=== PATIENT | female | born 1990 | race Caucasian/White ===

== ENCOUNTER → 2019-08-22 16:10 | Outpatient (CLI) | payer OTHER, SELFPAY ==
--- NOTE | 2019-08-22 | DI.MRI.S_ITS ---
PROCEDURE: MR HEAD/BRAIN WO CON INDICATIONS: Other migraine TECHNIQUE: Noncontrast axial T1 spin echo, axial T2 fast spin echo, sagittal and axial FLAIR, coronal T2 fast spin echo, axial gradient echo, axial diffusion and ADC through the brain. COMPARISON: None. FINDINGS: Image quality: Excellent. CSF Spaces: Basal cisterns are patent. No extra-axial fluid collections. Ventricles are normal in size and shape. Brain: No intracranial masses or hemorrhage. Matias/white matter interface is normal. Brainstem appears normal. Diffusion-weighted images demonstrate no acute ischemic insult. No chronic ischemic insults. Normal intravascular flow voids are present. Skull and face: Calvarium has normal marrow signal. Orbits appear normal. Sinuses: Sinuses and mastoids are clear. IMPRESSION: Unremarkable intracranial study, without an imaging explanation found for the patient's presenting history of migraine headaches. Dictated by: Tu Perera M.D. on 08/22/2019 at 16:14 Approved by: Tu Perera M.D. on 08/22/2019 at 16:16
== END ==
PROVIDERS: PCP Family Medicine; Referring Provider Family Medicine; Visit Provider Family Medicine
DX: G43.809 Other migraine, not intractable, without status migrainosus (principal); Q67.0 Congenital facial asymmetry; H50.9 Unspecified strabismus
CPT/HCPCS: 70551

== ENCOUNTER → 2020-06-18 15:41 | Outpatient (CLI) | payer OTHER, SELFPAY ==
--- NOTE | 2020-06-18 15:47 | DIET.PN ---
INITIAL GESTATIONAL DIABETES ASSESSMENT ASSESS:? Mrs. Medel is a 30 yof referred for Gestational Diabetes. She is G2, P1. She admits she has not followed good dietary habits with this . She has had many recent life changes including new job working from home which has increased her sedentary time, deployed , and . She admits to eating whatever is fast and easy including frozen meals, fast food take out, and convenience foods like protein bars. She does not have a glucometer at this time. Prior to , she was taking phentermine for weight loss. She does not currently exercise as she reports it causes headaches. ? OSIEL:?09/24/2020 ? WKS GESTATION:?? 26 wks ?LABS: fastin 1hr :135 2hr: 95 3hr: 70 ? MEDS: none ? DIET: ? B: coffee, cake L: power/protein bowls Sn: kind bars D: fast food ? HT:? 69.5in ? PRE-PREG WT:? 230lb ? PRE-PREG BMI:???33.4 ? CURRENT WT: 273lb ? TOTAL WT GAIN:? 43lb EXERCISE: none NUTRITION DX 1. Altered nutrition related lab values r/t gestational diabetes as evidenced by recent labs (OGGT). INTERVENTION 1. Discussed pathophysiology of gestational diabetes and impact of hormone and nutrition/diet on blood sugar control.? Discussed fed versus non-fed state.? 2. Recommended checking fasting, pre-meal and 1hr post prandial (3x/day).? Discussed goals for glycemic control (<95 FBG, <140 1-hr PP).? 3. Discussed the effect of carbohydrates/protein/fat on blood sugar control.? Stressed importance of consistent carbohydrate intake at each meal and provided instructions for recommended servings/portions of carbohydrates/protein per meal.? Provided pt with educational material. 4. Introduced carbohydrate counting and measuring carbohydrate content via servings sizes and reading nutrition labels.? Provided handouts.? Pt will need further review 5. Discussed importance of meal timing and not going >3 hours between meals.? Provided sample meal schedule for pt.? Pt agreeable.?? 6. Discussed importance a pre-regan vitamin and including food sources of calcium, vitamin D, iron and folic acid for baby and mother?s nutrition support. 7. Discussed caffeine intake. Recommend no more than 200 mg/day (1 cup coffee). 8. Discussed rule of 15 for hypoglycemia. 9. Recommend patient purchase Urine Ketone strips and instructed on use and when to contact provider. 10. Recommended patient continue exercise as appropriate per PCP approval. 11. Patient may need medication management, will follow-up with plan of care at next visit after reviewing glucose results.? MONITOR/EVAL: Follow up scheduled X 3 week. Good compliance expected. Review: carb sources, carb counting, portion size, meal timing, BG log, weight. Today?s visit was done via tele health. 1 hour was spent [id number] by video. Patient consented to receive these services via tele health using the [employer] application. Participants in the tele conference were myself and the patient only. I was located at [facility] and the patient at his/her home.
== END ==
PROVIDERS: PCP Family Medicine; Referring Provider Specialist; Visit Provider Specialist
DX: O24.410 Gestational diabetes mellitus in pregnancy, diet controlled (principal); Z3A.26 26 weeks gestation of pregnancy; Z71.3 Dietary counseling and surveillance
CPT/HCPCS: G0108

== ENCOUNTER → 2020-06-28 11:25 | Outpatient (CLI) | payer OTHER, SELFPAY ==
[2020-06-28 12:10] LABS: Hematocrit 34.5 % (36-46); Hemoglobin 11.5 g/dL (12.0-16.0)
== END ==
PROVIDERS: PCP Family Medicine; Referring Provider Specialist; Visit Provider Specialist
DX: O26.899 Other specified pregnancy related conditions, unspecified trimester (principal); Z67.91 Unspecified blood type, Rh negative; Z3A.26 26 weeks gestation of pregnancy
CPT/HCPCS: 36415; 85014; 85018; 86850

== ENCOUNTER → 2020-07-12 11:33 | Outpatient (CLI) | payer OTHER, SELFPAY ==
[2020-07-12 13:37] LABS: Alanine Aminotransferase 11 IU/L (<35); Albumin 3.9 g/dL (3.5-5.0); Albumin Globulin Ratio 1.1 (1.0-2.8); Alkaline Phosphatase 73 U/L (38-126); Aspartate Aminotransferase 17 IU/L (14-36); BUN Creatinine Ratio 14.3 (6-22); Bilirubin Total 0.2 mg/dL (0.2-1.3); Blood Urea Nitrogen 6 mg/dL (7-17); Calcium 10.1 mg/dL (8.4-10.2); Carbon Dioxide 24 mmol/L (22-32); Chloride 104 mmol/L (98-107); Estimated Glomerular Filt Rate > 60.0 mL/min (>60); Globulin 3.6 g/dL (1.7-4.1); Glucose 94 mg/dL (70-100); HEMOLYSIS < 15 (0-50); Potassium 4.2 mmol/L (3.4-5.1); Sodium 135 mmol/L (137-145); Total Protein 7.5 g/dL (6.3-8.2)
== END ==
PROVIDERS: PCP Family Medicine; Referring Provider Specialist; Visit Provider Specialist
DX: T50.901A Poisoning by unspecified drugs, medicaments and biological substances, accidental (unintentional), initial encounter (principal)
CPT/HCPCS: 36415; 80053

== ENCOUNTER → 2020-08-31 17:24 | Outpatient (CLI) | payer OTHER, SELFPAY ==
[2020-09-01 16:10] LABS: Strep Grp B PCR NEG for Grp B Strep
== END ==
PROVIDERS: PCP Family Medicine; Visit Provider Obstetrics & Gynecology
DX: Z34.03 Encounter for supervision of normal first pregnancy, third trimester (principal); Z3A.36 36 weeks gestation of pregnancy
CPT/HCPCS: 87653

== ENCOUNTER 2020-09-18 21:26 | Observation (INO) | payer OTHER, SELFPAY ==
[2020-09-18 23:04] LABS: Add Manual Diff / Slide Review NO; Basophils Absolute Auto 0 /uL (0-100); Basophils Percent Auto 0.3 % (0-2); Eosinophils Absolute Auto 100 /uL (0-450); Eosinophils Percent Auto 0.9 % (2-4); Hematocrit 35.8 % (36-46); Hemoglobin 12.2 g/dL (12.0-16.0); Lymphocytes Absolute Auto 1700 /uL (1100-4500); Mean Corpuscular HGB Conc 34.1 % (30-36); Mean Corpuscular Hemoglobin 29.9 PG (26-34); Mean Corpuscular Volume 87.7 fL (80-100); Monocytes Absolute Auto 600 /uL (0-900); Monocytes Percent Auto 5.7 % (3-14); Neutrophils Absolute Auto 7300 /uL (1500-7000); Neutrophils Percent Auto 75.1 % (50-75); Platelet Count 178 X10^3/uL (150-400); Red Blood Cell Count 4.08 X10^6/uL (4.0-5.2); Red Cell Distribution Width 14.2 % (11.6-14.8); White Blood Cell Count 9.7 X10^3/uL (4.5-11.0)
[2020-09-18 23:51] LABS: COVID19 - ADMIT (NP swab/PCR) Negative (Negative)
[2020-09-18] MEDS: miSOPROStoL 25 MCG TABLET VAG (23:53)
[2020-09-19 00:48] VITALS: BP 117/69
[2020-09-19] MEDS: miSOPROStoL 25 MCG TABLET VAG (03:56)
[2020-09-19 04:49] VITALS: BP 120/56
--- NOTE | 2020-09-19 08:36 | P.HPOB_ITS ---
OB HPI Date/Time Date of admission: 09/18/20 Date Patient Seen: 09/19/20 Time Patient Seen: 07:30 History of Present Condition Chief complaint: induction : 2 Para: 1 Estimated Date of Delivery: 09/23/20 Estimated Gestational Age (weeks): 39 Narrative: Mariana Medel is a 30 year old female admitted for induction for patient convenience Indications Indication for induction OB: other (They are moving is seen as possible to [place]) History of Present care: good care, initiated at week # (12), number of visits (12) and pounds weight gain (65) Dating criteria: LMP confirmed by 1st trimester US Ultrasounds: normal mid trimester US Obstetrical complications: none Preadmission Labs Blood type: A (-) negative -: Antibody screen: negative, GBS status: negative, HBsAG: negative, HIV: negative and RPR/VDLR: negative -: Chlamydia screen: not detected and Gonorrhea screen: not detected -: Rubella: immune and Varicella: immune HCAB: negative PAP: Normal Sequential screen: Normal 1 hr GTT: 135 Prior (ies) History: 01/21/2012 40 week gestation vaginal delivery 7 lb 5 oz Evaluation Evaluation Baseline heart rate: 130 Variability: Moderate (11-25) monitor accelerations: Present Monitor Decelerations: Absent Contraction Frequency (minutes): 3 Uterine Contraction Intensity: Mild Category of Tracing: Reactive Status: Category l Cervical dilation (cm): 1 Cervical effacement (%): 75 station: -3 Laboratory results: Laboratory Tests 09/18/20 09/18/20 09/18/20 22:35 22:40 22:40 WBC 9.7 RBC 4.08 Hgb 12.2 Hct 35.8 L MCV 87.7 MCH 29.9 MCHC 34.1 RDW 14.2 Plt Count 178 Neut % (Auto) 75.1 H Lymph % (Auto) 18.0 L [place] % (Auto) 5.7 Eos % (Auto) 0.9 L Baso % (Auto) 0.3 Neut # (Auto) 7300 H Lymph # (Auto) 1700 [place] # (Auto) 600 Eos # (Auto) 100 Baso # (Auto) 0 SARS-CoV-2 (PCR) Negative Blood Type A Negative Antibody Screen Negative [facility] Medical History (Updated 07/12/20 @ 11:33 by Rakel Galloway MD) ADD (attention deficit disorder) Anxiety Blood type, Rh negative Chlamydia Depression Eczema Fibroadenoma of breast (~2015) Genital warts History of fibromyalgia Migraine Morbid obesity Myalgia No blood products (spontaneous vaginal delivery) (~01/21/12) Tobacco dependence Surgical History (Updated 05/30/20 @ 12:46 by Juliana Lee, RN) History of breast biopsy (~2015) S/P wisdom tooth extraction (~2014) [place] teeth extracted Family History (Updated 05/30/20 @ 12:40 by Juliana Lee, ADRIANNE) Mother Hypertension Diabetes mellitus Narcolepsy Depression Hyperlipidemia Father Diverticulitis Grandmother No problems noted. Grandfather Abuse, drug or alcohol Grandmother No problems noted. 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 needs: No Smoking Status: Former smoker Tobacco: How many years used: 15 second hand exposure: No alcohol intake: former (pre- : social on weekends) substance use type: does not use Meds Home Medications and Allergies Home Medications Medication Instructions Recorded Confirmed Type acetaminophen 650 mg 1,000 mg PO Q12H PRN tab 05/30/20 09/19/20 History tablet,extended release (Tylenol 8 Hour) prenat.vits,gypsy,ssx-[id number] 1 tab PO DAILY 05/30/20 09/19/20 History sertraline 25 mg tablet 25 mg PO DAILY #30 tab 07/12/20 09/19/20 Rx Double Electric breast Pump and #1 ea 09/13/20 09/19/20 Rx Supplies Allergies Allergy/AdvReac Type Severity Reaction Status Date / Time No Known Drug Allergies Allergy Verified 09/19/20 04:57 Review of Systems Review of Systems Narrative: Patient denies headaches, scotomata, epigastric pain. Good movement. No leakage of fluid. ROS: Yes All systems reviewed with the patient and are negative except as otherwise documented Exam Vital Signs (past 8 hours): - 09/19/20 00:48 09/19/20 04:49 Blood Pressure 117/69 120/56 L Narrative Exam Narrative: HEENT exam within normal limits. Lungs are clear to auscultation percussion. Heart is regular rate and rhythm no S3-S4 murmurs. Abdomen is gravid, nontender. Ultrasound confirms vertex presentation. Extremities without edema and nontender. Objective Labs Result Diagrams: 09/18/20 22:40 Labs: Laboratory Results - last 24 hr 09/18/20 09/18/20 09/18/20 22:35 22:40 22:40 WBC 9.7 RBC 4.08 Hgb 12.2 Hct 35.8 L MCV 87.7 MCH 29.9 MCHC 34.1 RDW 14.2 Plt Count 178 Neut % (Auto) 75.1 H Lymph % (Auto) 18.0 L [place] % (Auto) 5.7 Eos % (Auto) 0.9 L Baso % (Auto) 0.3 Neut # (Auto) 7300 H Lymph # (Auto) 1700 [place] # (Auto) 600 Eos # (Auto) 100 Baso # (Auto) 0 SARS-CoV-2 (PCR) Negative Blood Type A Negative Antibody Screen Negative Assessment and Plan Assessment and Plan Assessment and Plan narrative: 2 para 1 EDC 09/23/2020 admitted for induction for patient convenience. Patient received Cytotec x2 overnight. Unable to place Avendano balloon so will begin Pitocin. Anticipate vaginal delivery.
[2020-09-19] MEDS: LACTATED RINGERS 1,000 ML 100 ML IV (08:45)
[2020-09-19] MEDS: OXYTOCIN PREMIX 30 UNIT/500 ML PLAST..BAG IV (08:54)
[2020-09-19] MEDS: ACETAMINOPHEN 325 MG TABLET 650 MG PO (16:24)
--- NOTE | 2020-09-19 17:22 | PM.OBPNLAB ---
Date/Time Date Patient Seen: 09/19/20 Time Patient Seen: 17:22 Pain Control Pain control: tolerating well Pelvic Exam Dilation (cm): 1 Effacement (%): 75 station: -3 Contractions Contractions on admission: regular Monitor mode: External Pitocin rate (mU/min): 10 Contraction frequency (min): 3 Contraction duration (min): 1 Contraction pattern: Regular Contraction intensity: Mild Status status: Category l Heart Rate Baseline: 130 Monitor Accelerations: Present Monitor Decelerations: Absent Monitor Variability: Moderate Assessment and Plan Assessment: induction ongoing Comments: Patient with no change in her cervix despite 8 hours of Pitocin. Options reviewed with the patient including being discharged home and following up for evaluation for onset of labor later. Repeat Cytotec or repeat attempt at Avendano bulb. Patient will stop the Pitocin and eat dinner and then we will retry placement of Avendano bulb if not unsuccessful continue with Cytotec.
--- NOTE | 2020-09-20 09:36 | P.DS_ITS ---
Discharge Providers Provider Date of admission: 09/18/20 21:26 Discharge Date: 09/19/20 Primary care physician: Suma Amos DO Consults: 09/18/20 22:48 Consult to Anesthesiology Urgent Comment: Consulting Provider: Anesthesiologist Reason for consultation: Epidural Has provider been notified: No Discharge provider: Rakel Galloway MD Summary Hospital Course Date Patient Seen: 09/19/20 Time Patient Seen: 19:30 Diagnoses: 39 week gestation admitted for induction for patient convenience Hospital Course: Patient underwent Cytotec followed by failed attempt at Avendano bulb induction. She was on Pitocin for 8 hours with no change in her cervix. A Avendano bulb was successfully placed however the patient had minimal change in her cervix after the Avendano bulb passed through her cervix and she was not stacey. Patient decided rather than continuing on with induction at this point that she would prefer to go home to see if she would go into labor on her own. Peripartum Data Procedures: Prostin, Pitocin, Avendano bulb induction Discharge Diagnosis (1) 39 weeks gestation of : Status: Acute Status at Discharge Cognitive/behavioral status at discharge: oriented Functional status at discharge: independent ambulation Overall status at discharge: patient is progressing back to baseline Time Spent with Patient Time attestation: Total time spent providing and/or coordinating discharge services: Time spent: Less than 30 minutes Objective Labs Result Diagrams: 09/18/20 22:40 Exam Vital Signs (past 8 hours): Blood pressure 122/64, pulse 75, temperature 35.7? Narrative Exam Narrative: Patient's cervix is 2 cm dilated, 75% effaced,-2 station. heart tones category 1. No active contractions at this time. Discharge Plan Discharge Plan Patient Disposition: Home Discharge orders & Medications Prescriptions: Continued sertraline 25 mg tablet 25 mg PO DAILY Qty: 30 RF: 0 prenat.vits,gypsy,det-lvvg-pftjb Tablet 1 tab PO DAILY RF: 0 acetaminophen [Tylenol 8 Hour] 650 mg tablet extended release 1,000 mg PO Q12H PRN (Reason: pain) RF: 0 (DME) Double Electric breast Pump and Supplies See Rx Instructions .ROUTE .MEDSUPPLY Qty: 1 RF: 0 Follow up/Referrals: Rakel Galloway MD [Physician] - (Patient is scheduled for repeat attempt at i nduction on to stay the 13th. Hopefully she will return in labor prior to that time.) Suma Amos, [Primary Care Provider] - Diet/Activity/Treatments Diet: Regular Activity: No restrictions Skin/Wound/Dressing Care Report to your healthcare provider any signs of infection, such as:: increased pain Discharge Data Primary Care Provider: Suma Amos Attending Provider: Rakle Galloway
== END 2020-09-20 00:02 | disposition home or self-care (01) ==
PROVIDERS: Admitting Provider Specialist; PCP Family Medicine; Referring Provider Specialist; Visit Provider Specialist
DX: O99.343 Other mental disorders complicating pregnancy, third trimester (principal); F41.9 Anxiety disorder, unspecified; F32.9 Major depressive disorder, single episode, unspecified; Z3A.39 39 weeks gestation of pregnancy; Z20.822 Contact with and (suspected) exposure to COVID-19
CPT/HCPCS: 59200; 36415; 85025; 86850; 86900; 86901; 87635; C9803; G0378; G0379; J2590

== ENCOUNTER 2020-09-21 00:40 | Outpatient (CLI) | payer OTHER, SELFPAY | END 2020-09-21 01:05 | disposition home or self-care (01) | LOC: LABOR 00:47 → OB 07:52 | PROVIDERS: PCP Family Medicine; Referring Provider Specialist; Visit Provider Specialist | DX: Z34.83 Encounter for supervision of other normal pregnancy, third trimester (principal); Z3A.39 39 weeks gestation of pregnancy | CPT/HCPCS: 59025; G0378; G0379 ==

== ENCOUNTER 2020-09-25 07:28 | Inpatient (IN) | payer OTHER, SELFPAY ==
[2020-09-25] MEDS: LACTATED RINGERS 1,000 ML 100 ML IV (08:00)
[2020-09-25 08:51] LABS: Add Manual Diff / Slide Review NO; Basophils Absolute Auto 100 /uL (0-100); Basophils Percent Auto 0.6 % (0-2); Eosinophils Absolute Auto 100 /uL (0-450); Eosinophils Percent Auto 0.8 % (2-4); Hematocrit 37.4 % (36-46); Hemoglobin 12.6 g/dL (12.0-16.0); Lymphocytes Absolute Auto 1700 /uL (1100-4500); Lymphocytes Percent Auto 18.8 % (25-40); Mean Corpuscular HGB Conc 33.8 % (30-36); Mean Corpuscular Hemoglobin 29.5 PG (26-34); Mean Corpuscular Volume 87.3 fL (80-100); Monocytes Absolute Auto 400 /uL (0-900); Monocytes Percent Auto 4.4 % (3-14); Neutrophils Absolute Auto 6700 /uL (1500-7000); Neutrophils Percent Auto 75.4 % (50-75); Platelet Count 175 X10^3/uL (150-400); Red Blood Cell Count 4.28 X10^6/uL (4.0-5.2); Red Cell Distribution Width 14.5 % (11.6-14.8); White Blood Cell Count 8.9 X10^3/uL (4.5-11.0)
[2020-09-25] MEDS: OXYTOCIN PREMIX 30 UNIT/500 ML PLAST..BAG IV (09:22)
[2020-09-25 09:30] VITALS: BP 125/65
[2020-09-25 09:43] LABS: COVID19 - ADMIT (NP swab/PCR) Negative (Negative)
--- NOTE | 2020-09-25 15:12 | P.HPOB_ITS ---
OB HPI Date/Time Date of admission: 09/25/20 Date Patient Seen: 09/25/20 Time Patient Seen: 09:00 History of Present Condition Chief complaint: INDUCTION : 2 Para: 1 Estimated Date of Delivery: 09/23/20 Estimated Gestational Age (weeks): 40 Narrative: Mariana Medel is a 30 year old female admitted for induction for moving as soon as possible after delivery Indications Indication for induction OB: other (Moving is seen is possible after delivery) History of Present care: good care, initiated at week # (12), number of visits (12) and pounds weight gain (65) Dating criteria: LMP confirmed by 1st trimester US Ultrasounds: normal mid trimester US Obstetrical complications: none Medical complications: none Preadmission Labs Blood type: A (-) negative -: Antibody screen: negative, GBS status: negative, HBsAG: negative, HIV: negative and RPR/VDLR: negative -: Chlamydia screen: not detected and Gonorrhea screen: not detected -: Rubella: immune and Varicella: immune HCAB: negative Sequential screen: Normal 1 hr GTT: 135 Prior (ies) History: 01/21/2012 40 week gestation female infant weighing 7 lb 5 oz Evaluation Evaluation Baseline heart rate: 130 Variability: Moderate (11-25) monitor accelerations: Present Monitor Decelerations: Variable (Occasional mild) Contraction Frequency (minutes): 5 Uterine Contraction Intensity: Mild Category of Tracing: Reactive Status: Category ll Cervical dilation (cm): 2 Cervical effacement (%): 75 station: -3 Laboratory results: Laboratory Tests 09/25/20 09/25/20 09/25/20 08:20 08:20 08:20 WBC 8.9 RBC 4.28 Hgb 12.6 Hct 37.4 MCV 87.3 MCH 29.5 MCHC 33.8 RDW 14.5 Plt Count 175 Neut % (Auto) 75.4 H Lymph % (Auto) 18.8 L [place] % (Auto) 4.4 Eos % (Auto) 0.8 L Baso % (Auto) 0.6 Neut # (Auto) 6700 Lymph # (Auto) 1700 [place] # (Auto) 400 Eos # (Auto) 100 Baso # (Auto) 100 SARS-CoV-2 (PCR) Negative Blood Type A Negative Antibody Screen Negative [facility] Medical History (Updated 09/20/20 @ 09:38 by Rakel Galloway MD) ADD (attention deficit disorder) Anxiety Blood type, Rh negative Chlamydia Depression Eczema Fibroadenoma of breast (~2015) Genital warts History of fibromyalgia Migraine Morbid obesity Myalgia No blood products (spontaneous vaginal delivery) (~01/21/12) Tobacco dependence Surgical History (Updated 05/30/20 @ 12:46 by Juliana Lee, RN) History of breast biopsy (~2015) S/P wisdom tooth extraction (~2014) [place] teeth extracted Family History (Updated 05/30/20 @ 12:40 by Juliana Lee, ADRIANNE) Mother Hypertension Diabetes mellitus Narcolepsy Depression Hyperlipidemia Father Diverticulitis Grandmother No problems noted. Grandfather Abuse, drug or alcohol Grandmother No problems noted. 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: No Smoking Status: Never smoker Tobacco: How many years used: 15 second hand exposure: No alcohol intake: former (pre- : social on weekends) substance use type: does not use Meds Home Medications and Allergies Home Medications Medication Instructions Recorded Confirmed Type acetaminophen 650 mg 1,000 mg PO Q12H PRN tab 05/30/20 09/25/20 History tablet,extended release (Tylenol 8 Hour) prenat.vits,gypsy,omh-lnwc-ujfsu 1 tab PO DAILY 05/30/20 09/25/20 History sertraline 25 mg tablet 25 mg PO DAILY #30 tab 07/12/20 09/25/20 Rx Double Electric breast Pump and #1 ea 09/13/20 09/19/20 Rx Supplies Allergies Allergy/AdvReac Type Severity Reaction Status Date / Time No Known Drug Allergies Allergy Verified 09/19/20 04:57 Review of Systems Review of Systems Narrative: Patient denies leakage of fluid. Good movement. No headaches, scotomata, epigastric pain. ROS: Yes All systems reviewed with the patient and are negative except as otherwise documented Exam Vital Signs (past 8 hours): Blood pressure 125/61, pulse of 80, temperature 36.1? 09/25/20 09:30 Blood Pressure 125/65 Narrative Exam Narrative: HEENT exam within normal limits. Lungs are clear to auscultation percussion. Heart is regular rate and rhythm no S3-S4 murmurs. Abdomen is gravid. Fetus is vertex. Extremities without edema and nontender Objective Labs Result Diagrams: 09/25/20 08:20 Labs: Laboratory Results - last 24 hr 09/25/20 09/25/20 09/25/20 08:20 08:20 08:20 WBC 8.9 RBC 4.28 Hgb 12.6 Hct 37.4 MCV 87.3 MCH 29.5 MCHC 33.8 RDW 14.5 Plt Count 175 Neut % (Auto) 75.4 H Lymph % (Auto) 18.8 L [place] % (Auto) 4.4 Eos % (Auto) 0.8 L Baso % (Auto) 0.6 Neut # (Auto) 6700 Lymph # (Auto) 1700 [place] # (Auto) 400 Eos # (Auto) 100 Baso # (Auto) 100 SARS-CoV-2 (PCR) Negative Blood Type A Negative Antibody Screen Negative Assessment and Plan Assessment and Plan Assessment and Plan narrative: 40 week gestation here for induction for patient convenience
--- NOTE | 2020-09-25 15:41 | P.PCN_ITS ---
Regional Block Pre-procedure Procedure: Continuous Lumbar Epidural for L&D Attending OB provider: Rakel Galloway PMH/ROS narrative: morbid obesity anxiety ADHD GERD Hx: No personal or family history of anesthesia problems. PSH/Anesthesia history narrative: Previous epidural without issues Exam narrative: MP2, RRR, CTAB ASA Class: III Labs: Hct 37.4 % (36-46) 09/25/20 08:20 Plt Count 175 X10^3/uL (150-400) 09/25/20 08:20 Medications: Current Medications Generic Name Dose Route Start Last Admin Trade Name Freq PRN Reason Stop Dose Admin Calcium Carbonate 1,000 mg 09/25/20 08:11 Calcium Carbonate 500 Mg Tab PO Q2HR PRN Dyspepsia Carboprost Tromethamine 250 mcg 09/25/20 08:11 Carboprost 250 Mcg/Ml Ampul IM Q90M PRN Bleeding Fentanyl 100 mcg 09/25/20 08:11 Fentanyl 100 Mcg/2 Ml Inj IV Q1H PRN Pain, Severe (7-10) Lactated Ringer's 1,000 mls @ 100 mls/hr 09/25/20 08:15 09/25/20 08:00 Lactated Ringers IV 100 mls/hr CONT CHANELLE Administration Oxytocin/Lactated Ringer's 30 unit in 500 mls @ 200 mls/hr 09/25/20 08:11 Oxytocin Premix IV CONT PRN Bleeding Protocol Tranexamic Acid 1,000 mg/ 100 mls @ 200 mls/hr 09/25/20 08:11 Sodium Chloride IV NOW PRN Bleeding Oxytocin/Lactated Ringer's 30 unit in 500 mls @ 3 mls/hr 09/25/20 08:13 0 09/25/20 09:22 Oxytocin Premix IV 3 milliunit/min TITRATE CHANELLE 3 mls/hr Administration Protocol 3 MILLIUNIT/MIN Methylergonovine Maleate 0.2 mg 09/25/20 08:11 Methylergonovine 0.2 Mg Tablet PO Q6HR PRN Heavy Bleeding Methylergonovine Maleate 0.2 mg 09/25/20 08:11 Methylergonovine 0.2 Mg/Ml Vial IM NOW PRN Bleeding Misoprostol 800 mcg 09/25/20 08:11 Misoprostol 200 Mcg Tablet NV NOW PRN Bleeding Misoprostol 1,000 mcg 09/25/20 08:11 Misoprostol 200 Mcg Tablet NV NOW PRN Bleeding Misoprostol 400 mcg 09/25/20 08:11 Misoprostol 200 Mcg Tablet SL NOW PRN Bleeding Naloxone HCl 0.2 mg 09/25/20 08:11 Naloxone 0.4 Mg/Ml Vial IV Q2MIN PRN Opiate Reversal Ondansetron HCl 4 mg 09/25/20 08:11 Ondansetron 4 Mg/2 Ml Inj IV Q4HR PRN Nausea And Vomiting Oxytocin 10 unit 09/25/20 08:11 Oxytocin 10 Unit/Ml Vial IM NOW PRN Bleeding Allergies: Allergies Allergy/AdvReac Type Severity Reaction Status Date / Time No Known Drug Allergies Allergy Verified 09/19/20 04:57 Procedure Insertion date: 09/25/20 Insertion time: 15:50 Prep/Local: betadine x3 (chloroprep) and 1% lidocaine Interspace: L3-4 Patient position: sitting Needle: 18 gauge Sunny Loss of resistance with: saline YARELI at (cm): 7 Catheter placed at SKIN (cm): 12 Catheter in SPACE (cm): 5 Insertion: Yes CSF Initial Medications TEST DOSE time: 15:30 TEST DOSE: 1.5% lidocaine with epinephrine 1:200k (mL): 5 BOLUS DOSE time: 15:31 BOLUS DOSE (mL): 2 BOLUS DOSE med: other (10mcg fentanyl intrathecally, 90mcg fentanyl via epidural catheter) Infusion INFUSION: 0.0625% bupivacaine and with fentanyl 2 mcg/mL Initial rate (mL/hr): 12 Subsequent interventions: 1645: decreased to 8mL/hr as patient numb to nipple- line Post-procedure Anesthesia time START: 15:13 Anesthesia time END: 18:15 Post-procedure Anesthesia Assessment: Yes CV function: HR/BP stable, Yes Resp function: RR/sat/airway adequate, Yes Post-op hydration adequate, Yes Pain control adequate, Yes Nausea & vomiting absent, Yes Temperature > 36 C, Yes Mental status appropriate and No Anesthesia complications ( intolerance --> )
--- NOTE | 2020-09-25 16:56 | PM.OBPNLAB ---
Date/Time Date Patient Seen: 09/25/20 Time Patient Seen: 16:57 Pain Control Pain control: epidural Pelvic Exam Dilation (cm): 5 Effacement (%): 75 station: -2 Amniotic membrane status: Ruptured (clear) Contractions Contractions on admission: regular Monitor mode: Internal Pitocin rate (mU/min): 21 Contraction frequency (min): 2 Contraction duration (min): 1 Contraction pattern: Regular Contraction intensity: Strong/Firm Intrauterine tone measurement: 120 Status status: Category ll Heart Rate Baseline: 140 Monitor Accelerations: Present Monitor Decelerations: Late Monitor Variability: Moderate Assessment and Plan Assessment: induction ongoing Comments: Pitocin turned off, IV fluid bolus, internal toco and scalp electrode placed, O2 by facemask. Began discussion of possible need for section.
--- NOTE | 2020-09-25 18:03 | P.OP.PRE_ITS ---
Pre-operative Note COVID-19 COVID-19 status: Negative Interval Note History & Physical reviewed/Exam performed by Physician: Yes Changes to H&P: Yes H&P completed within 30 days and has changed as indicated here:: 1st stage arres t
--- NOTE | 2020-09-25 18:06 | PM.OBPNLAB ---
Date/Time Date Patient Seen: 09/25/20 Time Patient Seen: 18:06 Pain Control Pain control: epidural Pelvic Exam Dilation (cm): 5 Effacement (%): 75 station: -2 Amniotic membrane status: Ruptured (clear) Contractions Monitor mode: Internal Pitocin rate (mU/min): 0 Contraction frequency (min): 2 Contraction duration (min): 1 Contraction pattern: Regular Contraction intensity: Strong/Firm Intrauterine tone measurement: 120 Status status: Category lll Heart Rate Baseline: 130 Monitor Accelerations: Absent Monitor Decelerations: Absent Monitor Variability: Minimal Assessment and Plan Plan: Comments: Patient with no change in cervical dilation with nonreassuring heart tones will proceed with section
[2020-09-25] MEDS: CEFAZOLIN 1 GM VIAL 2 GM IV (18:18)
--- NOTE | 2020-09-25 18:49 | SUR.OPER ---
Supine on Padded OR bed, head on pillow, safety belt at thigh, arms secured on padded arm boards at <90 degrees abduction. Bump under right buttock. Legs uncrossed with pillow under knees, gel pad to heels, tape over blanket to lower legs.
--- NOTE | 2020-09-25 18:49 | SUR.OPER ---
Viable female delivered at 1836. Cord blood and placenta sent with L&D nurse.
[2020-09-25 19:11] VITALS: BP 127/59; PULSE 102; RESP 16; TEMP 37.4; O2SAT 99
[2020-09-25 19:16] VITALS: BP 132/52; PULSE 88; RESP 16; O2SAT 99
[2020-09-25 19:21] VITALS: BP 132/73; PULSE 100; RESP 14; O2SAT 99
--- NOTE | 2020-09-25 19:21 | PM.OP.1 ---
Operative Date/Time/Diagnoses Date of procedure: 09/25/20 Time of procedure: 19:21 Pre-op diagnosis: 1st stage arrest Post-op diagnosis: same Procedure & Clinicians Procedure: Primary low-transverse section Same procedure as scheduled: Yes Indications: 1st stage arrest Surgeon: Rakel Galloway Pickling Machine Operator: Remington Lea Anesthesia Type: Epidural Operative Notes Findings: Normal tubes, ovaries, uterus. Viable female weighing 9 lb 4 oz Apgars of 9 and 9. Cord pH 7.307 and 7.47 Closure Type: primary Specimen(s): none sent Applied: catheter (Avendano) Estimated Blood Loss (mL): 400 Blood products transfused: none Procedure in detail: The patient was brought to the operating room where she underwent a bolus of her epidural for anesthesia. She was placed in a supine position with a left lateral tilt. A Avendano catheter was in place. Pulsatile stockings were placed and functional throughout the case. 2 g of Ancef were given IV prior to the incision. Warming was in place. The patient was prepped and draped in usual sterile fashion. A low transverse incision was made with a scalpel and the incision was carried down to the fascial layer which was incised transversely with scissors. The office clerk assistant did his side of the incision. The midline attachments are superiorly and inferiorly. Some bleeding was controlled Bovie. The rectus muscles were in the midline and the peritoneal incision was made with no damage to internal structures. The peritoneum was incised and superiorly and inferiorly. The incision was stretched with the surgeon and office clerk assistant placing traction. Bladder blade was placed and a bladder flap was developed and the bladder held away from the lower uterine segment. An incision was made in the uterus with the scalpel and the incision was extended with stretching. The head was elevated out of the abdomen and with fundal pressure by the office clerk assistant the baby was delivered. The was bulb suctioned for clear fluid and handed off to the warmer. A cord segment was taken for cord pHs. Cord blood was collected. The placenta delivered spontaneously with traction. The uterus was cleaned with clean laps. The uterine incision was closed in 2 layers of 0 chromic suture the first a running locking layer the second an imbricating layer. The office clerk assistant was helping to expose the incision. The gutters were cleaned of any remaining fluids and ovaries and tubes were observed to be normal. Adequate hemostasis was noted. The fascia layer was closed with 0 Vicryl suture with 2 stitches. The office clerk assistant repairing half the incision with helping to retract and expose the incision for the other half. The incision was irrigated and adequate hemostasis noted. The incision was closed with interrupted 3-0 Vicryl sutures and then a subcuticular stitch of 4-0 Vicryl suture. Steri-Strips were placed. The uterus was massaged to remove any clots. The patient went to recovery room in good condition. Counts of instruments and sponges were correct. Dr. Lea was present throughout the case to assist with retraction, fundal pressure to deliver the , and suturing half the fascia. Complications: none Post-operative Condition: stable Disposition: other ( Center) Plan for aftercare: Routine post section care
[2020-09-25] MEDS: OXYCODONE IR 5 MG TABLET PO (19:28)
--- NOTE | 2020-09-25 19:51 | SUR.PHASEI ---
REPORT GIVEN TO ROB CHEN RN. ALL QUESTIONS ANSWERED TO SATISFACTION. LEFT PATIENT IN STABLE CONDITION WITH BED LOCKED IN LOW POSITION, AND SCD'S ON.
[2020-09-26] MEDS: LANOLIN OINT 7 GM 1 APPLIC TOP (01:11)
[2020-09-26] MEDS: KETOROLAC 30 MG/ML VIAL IV ×3 (01:11→17:00)
[2020-09-26] MEDS: ACETAMINOPHEN 325 MG TABLET 650 MG PO ×2 (06:14→20:50)
[2020-09-26 06:53] LABS: Add Manual Diff / Slide Review NO; Basophils Absolute Auto 0 /uL (0-100); Basophils Percent Auto 0.1 % (0-2); Eosinophils Absolute Auto 0 /uL (0-450); Eosinophils Percent Auto 0.3 % (2-4); Hematocrit 30.2 % (36-46); Hemoglobin 10.2 g/dL (12.0-16.0); Lymphocytes Absolute Auto 1200 /uL (1100-4500); Lymphocytes Percent Auto 11.6 % (25-40); Mean Corpuscular HGB Conc 33.7 % (30-36); Mean Corpuscular Hemoglobin 29.5 PG (26-34); Mean Corpuscular Volume 87.7 fL (80-100); Monocytes Absolute Auto 600 /uL (0-900); Monocytes Percent Auto 5.5 % (3-14); Neutrophils Absolute Auto 8400 /uL (1500-7000); Neutrophils Percent Auto 82.5 % (50-75); Platelet Count 131 X10^3/uL (150-400); Red Blood Cell Count 3.44 X10^6/uL (4.0-5.2); Red Cell Distribution Width 14.4 % (11.6-14.8); White Blood Cell Count 10.1 X10^3/uL (4.5-11.0)
[2020-09-26] MEDS: DOCUSATE 250 MG CAPSULE PO (08:42)
--- NOTE | 2020-09-26 13:48 | PM.OBPN.1 ---
Subjective - OB Subjective Patient comments: incisional pain and tolerating diet baby status: doing well and nursing well feeding status: exclusively breast feeding Date Patient Seen: 09/26/20 Time Patient Seen: 13:49 Interval history: Postop Day 1 primary low-transverse section. Patient is doing well. She just got up for the 1st time and was not dizzy. She she is tolerating a regular diet. She does complain of incisional pain. Exam Vital Signs (past 8 hours): Blood pressure 119/65, pulse of 98, temperature 98.1? Oxygen Delivery Method Room Air Oxygen Flow Rate 0 Narrative Exam Narrative: Patient's abdomen is soft, nontender. Uterus is firm, at U, nontender. Dressing is clean, dry, intact. Mild lochia. Extremities without edema and nontender. Objective Labs Result Diagrams: 09/26/20 06:34 Labs: Laboratory Results - last 24 hr 09/26/20 09/26/20 06:34 06:34 WBC 10.1 RBC 3.44 L Hgb 10.2 L Hct 30.2 L MCV 87.7 MCH 29.5 MCHC 33.7 RDW 14.4 Plt Count 131 L Neut % (Auto) 82.5 H Lymph % (Auto) 11.6 L [place] % (Auto) 5.5 Eos % (Auto) 0.3 L Baso % (Auto) 0.1 Neut # (Auto) 8400 H Lymph # (Auto) 1200 [place] # (Auto) 600 Eos # (Auto) 0 Baso # (Auto) 0 Maternal Bleed Negative Assessment & Plan Plan day: 1 plan OB: routine postop care Comments: Avendano catheter will be removed. Patient's questions were answered. Likely home tomorrow. Time Spent With Patient Time: Total time spent is greater than 50% in coordination of care (as documented) at patient's floor/unit and/or counseling patient: Time with patient: less than 15 minutes
[2020-09-26] MEDS: OXYCODONE IR 5 MG TABLET PO ×2 (14:39→20:50)
[2020-09-26 22:32] VITALS: BP 128/69; BP 132/73; PULSE 82; RESP 16; TEMP 36.1
[2020-09-26] MEDS: IBUPROFEN 600 MG TABLET PO (22:47)
[2020-09-27] MEDS: OXYCODONE IR 5 MG TABLET PO ×3 (00:56→08:57)
[2020-09-27] MEDS: ACETAMINOPHEN 325 MG TABLET 650 MG PO ×2 (02:46→08:57)
[2020-09-27] MEDS: IBUPROFEN 600 MG TABLET PO ×2 (04:43→11:15)
--- NOTE | 2020-09-27 07:21 | P.DS_ITS ---
Discharge Providers Provider Date of admission: 09/25/20 07:28 Discharge Date: 09/27/20 Primary care physician: Suma Amos DO Consults: 09/25/20 08:12 Consult to Anesthesiology Urgent Comment: Consulting Provider: Anesthesiologist Reason for consultation: Epidural Has provider been notified: No 09/25/20 22:32 Consult to Shelf Drier Operator Routine Comment: Discharge provider: Rakel Galloway MD Summary Hospital Course Date Patient Seen: 09/27/20 Time Patient Seen: 07:21 Diagnoses: 39 week gestation with 1st stage arrest, primary low-transverse section Hospital Course: Patient arrived on Labor and delivery for induction for patient convenience. She received an epidural catheter for pain control. She had 1st stage arrest and underwent a primary low-transverse section for a 9 lb female infant. Patient is urinating and ambulating well. She is passing gas. She is breast-feeding. Peripartum Data Delivery Method: Section Procedures: Pitocin induction, epidural catheter, primary low-transverse section. complications: none 1: Gender: Female Disposition of : home Status at Discharge Cognitive/behavioral status at discharge: oriented Functional status at discharge: independent ambulation Overall status at discharge: patient is progressing back to baseline Time Spent with Patient Time attestation: Total time spent providing and/or coordinating discharge services: Objective Labs Result Diagrams: 09/26/20 06:34 Labs: Laboratory Results - last 24 hr 09/26/20 06:34 Maternal Bleed Negative Exam Vital Signs (past 8 hours): Blood pressure 124/60, temperature 96.1?, pulse of 90 Oxygen Delivery Method Room Air Oxygen Flow Rate 0 Narrative Exam Narrative: Patient's abdomen is soft, nontender. Uterus is firm, at U, nontender. Dressing is clean, dry, intact. Mild lochia. Extremities with tra ce edema and nontender. Patient is A-negative, she will receive RhoGAM prior to discharge, rubella immune, received the Tdap in the 2nd trimester. Discharge Plan Discharge Plan Patient Disposition: Home Discharge orders & Medications Prescriptions: New ibuprofen 600 mg Tablet 600 mg PO Q6H PRN (Reason: Fever/Mild Pain (1-3)) Qty: 20 RF: 0 oxycodone-acetaminophen 5-325 mg tablet 1 tab PO Q4-6H PRN (Reason: pain) Qty: 30 RF: 0 docusate sodium 250 mg Capsule 250 mg PO DAILY Qty: 20 RF: 0 Continued prenat.vits,gypsy,ggo-wxwm-msori Tablet 1 tab PO DAILY RF: 0 acetaminophen [Tylenol 8 Hour] 650 mg tablet extended release 1,000 mg PO Q12H PRN (Reason: pain) RF: 0 (DME) [employer] breast Pump and Supplies See Rx Instructions .ROUTE .MEDSUPPLY Qty: 1 RF: 0 Discontinued sertraline 25 mg tablet 25 mg PO DAILY Qty: 30 RF: 0 Follow up/Referrals: Rakel Galloway MD [Physician] - 1 Week (Aquacel removal) Suma Amos DO [Primary Care Provider] - Diet/Activity/Treatments Diet: Regular Activity: Nothing in vagina or lifting over 20 lb for 6 weeks Skin/Wound/Dressing Care Report to your healthcare provider any signs of infection, such as:: chills, fever and increased pain Dressing: Leave dressing in place until post visit in 1 week Discharge Data Primary Care Provider: Suma Amos
[2020-09-27] MEDS: DOCUSATE 250 MG CAPSULE PO (08:58)
[2020-09-27] MEDS: RHO(D) IMMUNE GLOBULIN 1,500 UNIT SYRINGE 1500 UNIT IM (11:16)
== END 2020-09-27 12:45 | disposition home or self-care (01) | DRG 788 ==
PROVIDERS: Admitting Provider Specialist; PCP Family Medicine; Referring Provider Specialist; Visit Provider Specialist
PROC: 10D00Z1 Extraction of Products of Conception, Low, Open Approach (ICD-10-PCS; CPT 59514; principal; 2020-09-25 18:30)
DX: O63.0 Prolonged first stage (of labor) (principal); Z3A.39 39 weeks gestation of pregnancy; Z37.0 Single live birth; O99.344 Other mental disorders complicating childbirth; F41.9 Anxiety disorder, unspecified; F90.9 Attention-deficit hyperactivity disorder, unspecified type; O99.214 Obesity complicating childbirth; E66.01 Morbid (severe) obesity due to excess calories; Z20.822 Contact with and (suspected) exposure to COVID-19
CPT/HCPCS: 01967; 01968; 36415; 59050; 59514; 59515; 85025; 85461; 86850; 86900; 86901; 87635; C9803; G0379; J0690; J1885; J2274; J2405; J2590; J2790